=== PATIENT | female | born 1990 | race Caucasian/White ===

== ENCOUNTER 2017-12-25 11:32 | Inpatient (IN) | payer MEDICAID ==
[2017-12-25] MEDS ORDERED: Sodium Chloride 0.9% 10 ML Syringe FLUSH PRN (13:27)
[2017-12-25] MEDS ORDERED: Tranexamic Acid 1,000 MG in Sodium Chloride 0.9% 100 ML IV PRN (13:27)
[2017-12-25] MEDS ORDERED: Methylergonovine 0.2 MG/1 ML Amp IM PRN (13:27)
[2017-12-25] MEDS ORDERED: Acetaminophen 325 MG Tab PO PRN (13:27)
[2017-12-25] MEDS ORDERED: Misoprostol 400 MCG (4 X 100 MCG TAB) RECTAL PRN (13:27)
[2017-12-25] MEDS ORDERED: Lidocaine 1% 30 ML SDV INJECT PRN (13:27)
[2017-12-25] MEDS ORDERED: Carboprost Tromethamine 250 MCG/1 ML Amp IM PRN (13:27)
[2017-12-25] MEDS ORDERED: Lactated Ringers 500 ML IV ONE (13:27)
[2017-12-25] MEDS: Misoprostol 25 MCG (1/4 of 100 MCG) Tab VAG PRN ×2 (14:11→19:19)
--- NOTE | 2017-12-25 15:11 | OBOUT ---
DATE: 12/25/2017 DATE AND TIME OF NST: DATE: 12/25/2017. TIME: 1210 hours to 1230 hours. REASON FOR NST: 1. Intrauterine at 38 and 5/7 weeks confirmed with 20 and 6/7 weeks ultrasound. 2. Gestational hypertension versus preeclampsia. 3. Gestational diabetes mellitus - suspected with 1 hour GTT of 206, negative followup thereafter. 4. No labs located despite calling for records and reviewing them other than a quad screen, which appears to be within normal limits. We will do no care labs upon admission. 5. GBS negative. 6. G4, P1-0-2-1. NST INTERPRETATIONS: During this time period, heart tone baseline is approximately 150 and there are at least two 15 x 15 beat per minute accelerations, making this strip reactive. It is also noted to be reassuring. Tocometer reveals potential occasional contraction, none felt by patient. Blood pressure during this time 141/84, recheck 146/93, heart rate between 102 and 105. PLAN: The patient will be admitted. Start with no care labs as well as PIH panel and start Cytotec as her cervix is only 2 to 2.5 cm, 60% effaced, - 2 station, vertex suspected with vaginal cyst noted and relayed to nurse. I discussed the risks, benefits, alternatives, complications, use of Cytotec. Verbal consent was obtained, written consent will be obtained prior to use and we will start with Cytotec. Follow blood pressures closely as well as her labs. I did discuss with her the indication for her induction is with her increased blood pressures as well as suspected gestational diabetes mellitus, we will proceed with the above. The patient understands and agrees with the above treatment plan. [facility] /[id number]
[2017-12-25] MEDS ORDERED: Misoprostol 50 MCG (1/2 of 100 MCG) Tab VAG PRN ×2 (18:10→19:13)
[2017-12-25] MEDS: Lactated Ringers 1,000 ML IV SCH (18:15)
--- NOTE | 2017-12-25 23:59 | HP ---
HISTORY OF PRESENT ILLNESS: The patient is a 27-year-old G4, P1-0-2-1, currently at 38 and 5/7 weeks' gestation confirmed with a 20 and 6/7 weeks' ultrasound, who was seen in the clinic today with elevated blood pressures. She was subsequently sent over to the hospital for an NST and monitoring of her blood pressure and blood glucose. Her pressures were found to be consistently in the 140s to 150s over 80s to 90s. The patient was subsequently admitted for induction of labor due to gestational hypertension. The patient notes that she has had some numbness and tingling in her hands bilaterally, left more than right for the past couple of days. She also notes increased swelling in both her upper and lower extremities for the past couple of days. No other concerns per patient. REVIEW OF SYSTEMS: She denies leakage of fluid, vaginal bleeding or spotting, or contractions, and has had movement. She denies any recent headaches or blurry vision, lightheadedness or dizziness, shortness of breath or chest pain, nausea or vomiting, right upper quadrant abdominal pain, dysuria or hematuria, or erythema or tenderness in any extremity. otherwise reviewed fully and felt to be noncontributory. Records called for reviewed, summarized and supplemented by patient as below: HISTORY: 1. Normal spontaneous vaginal delivery at 42 weeks' gestation producing a female weighing 8 pounds 8 ounces, named Farzana on June 20, 2009. She denies any or complications. She does note the use of a vacuum at delivery as well as an episiotomy was performed. 2. Spontaneous September 25, 2015. 3. Spontaneous March 28, 2016. 4. Current . She was initially receiving care in [facility]. Transferred her care to [place] with Dr. Nugent and then subsequently transferred her care to Dr. Polo in [facility]. The patient did fail her 1 hour glucose tolerance test and did not follow up to perform the 3-hour glucose tolerance test for financial reasons. She denies any complications with this . PAST MEDICAL HISTORY: Recurrent UTIs. She denies any personal history of heart, lung, liver, or kidney disease. MEDICATIONS: 1. vitamins. 2. Tylenol. 3. Tums. ALLERGIES: Sulfa. PAST SURGICAL HISTORY: 1. Cholecystectomy. 2. Tonsillectomy and adenoidectomy. FAMILY HISTORY: Diabetes in maternal grandmother. Heart disease in paternal grandfather. Drug abuse in father. She denies any known family history of defects, blood clot or bleeding disorders or problems undergoing anesthesia. She denies any other heart, lung, liver, or kidney disease in her family. SOCIAL HISTORY: The patient currently lives in [place] with her significant other, Horace, father of the baby, along with his daughter. Her daughter lives with the paternal grandfather who lives next door. She works for [employer]. She denies any use of tobacco, alcohol, or any other drugs during this . PHYSICAL EXAMINATION: Vital signs: Temperature 98.6, heart rate 83, blood pressure 152/84, respiratory rate 16. General: Pleasant, resting comfortably and in no acute distress. HEENT: Atraumatic. Anicteric sclerae. Normal nasal mucosa. Oropharynx without erythema, edema, or exudate. No obvious deformities to external ears. Neck: Supple without adenopathy or thyromegaly. Heart: Regular rate and rhythm S1 and S2. Lungs: Clear to auscultation bilaterally with normal respiratory effort. Abdomen: Gravid, soft, nontender to palpation. Cervical exam: 2 to 2.5 cm dilated, 60% effaced, -2 station, vertex suspected with anterior vaginal wall cyst noted. Neurologic: No obvious neurologic deficits. Extremities: 1+ edema in the upper and lower extremities bilaterally. No erythema or tenderness. Skin: Warm, dry, and well perfused. monitoring: heart tones 150 baseline, accelerations noted with no decelerations. Category I strip. [place] shows potential occasional irregular contractions, none felt by patient. TESTING: Blood type B positive. Other testing performed in [place] and records could not be obtained, so were performed today upon admit and results are pending. LABORATORY DATA: White blood cells 8.9, hemoglobin 10.4, platelets 229. Urine, abiprqd-ql-xegbdhdfar ratio 0.11. Urine random total protein 22, urine protein 30, urine ketones 80. UDS negative. ASSESSMENT: 1. Intrauterine at 38 and 5/7 weeks' gestation confirmed with a 20 and 6/7 weeks' ultrasound. 2. Gestational hypertension. 3. Gestational diabetes suspected, 1 hour glucose tolerance test 206 with negative follow-up thereafter. Blood glucose 98 upon admit. 4. No labs located despite calling for records and reviewing them other than a quad screen (within normal limits), were done on admission with results pending. 5. Group B streptococcus negative. 6. G4, P1-0-2-1. 7. Maternal anemia, hemoglobin 10.4 on admit. PLAN: Admit the patient to Labor and Delivery floor for induction of labor due to gestational hypertension and suspected gestational diabetes with questionable control. We will start with Cytotec and serially monitor the patient, following blood pressures closely. For pain control, the patient states that she will desire an intrathecal during labor. The patient expressed understanding and is in agreement with the above plan and all of her questions have been answered. The history, physical, assessment and plan are per Dr. Polo; and this note is being scribed for Dr. Polo. seen and agreed DCW. [facility] /[id number] JAGDISH
[2017-12-26] MEDS ORDERED: Nalbuphine 20 MG/1 ML Amp IM ONE ×2 (03:50→14:15)
[2017-12-26] MEDS: Oxytocin/Normal Saline 30 UNIT/500 ML BAG IV SCH (10:46)
[2017-12-26] MEDS: Ondansetron 4 MG/2 ML SDV IV PRN ×3 (12:03→22:18)
--- NOTE | 2017-12-26 13:04 | PN ---
DATE: 12/26/2017 SUBJECTIVE: The patient is now status post Cytotec x2, overnight she did receive some Nubain because of pain. Her vaginal cyst has been bothering her. OBJECTIVE: heart tones in the 130s range, acceleration noted with vaginal exam. Tocometer, when reading contractions, reads them every 2-3 minutes, but 2 to 4 minutes apart. Vaginal exam reveals 2.5 to 3 cm cyst, anterior wall vaginal region and behind this is her cervix which was about 3 cm, 75% effaced, -1 station, vertex suspected. Artificial rupture of membranes done after discussion with the patient yielding copious amounts of clear fluid. ASSESSMENT: Intrauterine now at 38 and 6/7 weeks, confirmed with 20 and 6/7-week ultrasound with gestational hypertension with preeclampsia labs negative as well as gestational diabetes mellitus suspected with 1-hour GTT being 206 and her sugar being controlled upon admit with no labs located in her previous charting, ordered here and GBS negative G4, P1-0-2-1 with anemia with hemoglobin 10.4 upon admit and her vaginal cyst as noted above. PLAN: Artificial rupture of membranes done as above. She is now status post Cytotec x2. We will re-evaluate in a few hours, may consider Pitocin augmentation at that time. The patient understands and agrees with the above treatment and plan. [facility] /[id number]
[2017-12-26] MEDS: Lactated Ringers 1,000 ML IV SCH ×3 (16:45→22:01)
[2017-12-26] MEDS ORDERED: EPINEPHrine 1 MG/ML SDV ONE ×3 (17:23→21:20)
[2017-12-26] MEDS ORDERED: fentaNYL 100 MCG/2 ML SDV ONE ×2 (17:23→21:20)
[2017-12-26] MEDS ORDERED: Bupivacaine 0.75%/D5W 2 ML Amp ONE ×2 (17:23→21:20)
[2017-12-26] MEDS ORDERED: ePHEDrine 50 MG/ML SDV ONE (17:47)
[2017-12-26] MEDS ORDERED: ePHEDrine 50 MG/ML SDV IVPUSH ONE ×2 (17:48→18:00)
--- NOTE | 2017-12-26 17:49 | PCM.SN ---
- Free Text/Narrative Note: Intrathecal. Sitting position, sterile prep and drape. 1 % lidocaine w bicarb for skinwheal to L3 L4 interspace. Introducer, 24 ga pencan x 3. Pos CSF, neg heme, neg parasthesia. 0.1 ml 1:1000 pf epi, 20 mcg pf sufenta, 30 mcg pf fentanyl, 0.4 ml pf ns and 6 mg of 0.75 % bupivacaine injected after CSF aspiration. Pt to L lateral side. Procedure time 1725 to 1755
--- NOTE | 2017-12-26 21:55 | PCM.SN ---
- Free Text/Narrative Note: Intrathecal. Sitting position, sterile prep and drape. 1 % lidocaine w bicarb for skinwheal to L3 L4 and L2 L3 interspace. Introducer, 24 ga pencan x 3 at L3 L4 and 3 x at L2 L3. Pos CSF at L2 L3, neg heme, parasthesia w needle insertion but resolved. 0.1 ml 1:1000 pf epi, 20 mcg pf sufenta, 30 mcg pf fentanyl, 0.4 ml pf ns and 6 mg of 0.75 % bupivacaine injected after CSF aspiration. Pt to L lateral side. Procedure time 1924 to 2009
[2017-12-27] MEDS: Oxytocin/Normal Saline 30 UNIT/500 ML BAG IV SCH (01:56)
[2017-12-27] MEDS: Acetaminophen 325 MG Tab PO PRN ×3 (02:06→18:34)
[2017-12-27] MEDS ORDERED: Acetaminophen/oxyCODONE 325-5 MG Tab PO ONE (03:53)
--- NOTE | 2017-12-27 10:15 | PN ---
DATE: 12/26/2017 SUBJECTIVE: The patient is uncomfortable, status post now NST, Cytotec x2, and artificial rupture of membranes. She is requesting something for pain. OBJECTIVE: Vital Signs: Blood pressure 135/84. heart tones in the 140s and felt to be reactive and reassuring. Tocometer reveals contractions every 1.5 to 3 minutes apart. Vaginal exam reveals her to be 4 cm, 85% effaced, -2 station, vertex suspected and IUPC placed after discussion with the patient with continued copious amounts of clear fluid leaking. Anterior vaginal wall cyst is smaller at approximately 2 cm. ASSESSMENT AND PLAN: Intrauterine now at 38 and 6/7 weeks with gestational hypertension, gestational diabetes mellitus, suspected with 1 hour GTT being 206. Blood sugar being 98 and under control upon admission with no care labs, which have been done, and GBS negative, G4, P1-0-2-1 with anemia with hemoglobin 10.4, and history of vaginal cyst anterior wall at 2.5 cm upon admission. [facility] /[id number]
[2017-12-27] MEDS: Docusate Sodium 100 MG Cap PO PRN ×2 (10:25→22:31)
--- NOTE | 2017-12-27 12:36 | PN ---
DATE: 12/27/2017 day #0, status post spontaneous vaginal delivery, complicated by shoulder dystocia and hemorrhage with an estimated blood loss of 1000 mL, complicated by uterine atony and retained placental fragments requiring bimanual uterine curettage of lower uterine segment with anemia of . Hemoglobin 10.4 upon admission. SUBJECTIVE: The patient states she is minimally sore. Pain is under control. She has been tolerating p.o. She has ambulated and urinated without difficulty. She is passing flatus. OBJECTIVE: Vital Signs: Last blood pressure 134/74 and heart rate 90. Appearance: In no obvious distress. LABORATORY DATA: Labs reveal a white cell count of 16.8, hemoglobin 9.4, and platelets 215. ASSESSMENT: 1. day #0, status post spontaneous vaginal delivery, complicated by the above as well as noting to have an anterior vaginal cyst that she was able to deliver around without any difficulty. 2. Anemia of acute blood loss. Hemoglobin dropping down to 9.4. We will check a CBC tomorrow. Follow up symptoms. Vital signs are stable currently. PLAN: I did discuss with the patient findings on her baby's exam today in regard to limited motion of the left shoulder. X-rays are pending. Also, did discuss with her the new-onset murmur which is suspected to be peripheral pulmonary stenosis, and we will follow clinically and closely in regard to this as well. Physical Therapy will be consulted for her baby. I did discuss with her over approximately 90% of these limited motion issues and concerns with extremities and the upper extremities after shoulder dystocia resolved over time, but we will continue to follow clinically and closely at this point in time due to the above interventions. The patient understands and agrees with the above treatment plan. [facility] /[id number]
[2017-12-27] MEDS: Ferrous Sulfate 325 MG Tab PO SCH (18:30)
[2017-12-28] MEDS: Acetaminophen 325 MG Tab PO PRN ×5 (03:42→22:59)
[2017-12-28] MEDS: Ferrous Sulfate 325 MG Tab PO SCH ×2 (08:32→18:33)
[2017-12-28] MEDS: Docusate Sodium 100 MG Cap PO PRN ×2 (08:33→22:59)
[2017-12-28] MEDS: Prenatal Multivitamin with Calcium/Folic Acid/Iron Tab PO SCH (08:33)
--- NOTE | 2017-12-28 09:14 | DEL ---
DATE: 12/27/2017 PREOPERATIVE DIAGNOSES: 1. Intrauterine at 39 weeks, confirmed with 20 and 6/7 week ultrasound. 2. Gestational hypertension. 3. Gestational diabetes mellitus, suspected with 1 hour GTT being 206, and glucose being controlled upon admit at 98. 4. No labs upon admission with records called for and drawn upon admission. 5. Group B Streptococcus negative. 6. Anemia of with a hemoglobin of 10.4 upon admission. 7. G4, P1-0-2-1. 8. Vaginal cyst anteriorly, approximately 2-1/2 cm. POSTOPERATIVE DIAGNOSES: 1. Intrauterine at 39 weeks, confirmed with 20 and 6/7 week ultrasound, delivered. 2. Gestational hypertension. 3. Gestational diabetes mellitus, suspected with 1 hour GTT being 206, and glucose being controlled upon admit at 98. 4. No labs upon admission with records called for and drawn upon admission. 5. Group B Streptococcus negative. 6. Anemia of with a hemoglobin of 10.4 upon admission. 7. G4, P1-0-2-1. 8. Vaginal cyst anteriorly, approximately 2-1/2 cm. 9. Thirty seconds shoulder dystocia requiring Gabi maneuver, suprapubic pressure, and entery maneuvers with baby in a LAKISHA presentation. 10.True umbilical cord knot. 11. hemorrhage with an EBL of a 1000 mL. 12.Uterine atony requiring Methergine, Hemabate, Cytotec, tranexamic acid, and bimanual finger uterine curettage of lower uterine segment to remove placental fragments. 13.Retained placental fragments requiring finger uterine curettage of lower uterine segment. 14.Macrosomia with weight of 10 pounds 3 ounces. PROCEDURE PERFORMED: NST and Cytotec x2 on 12/25/2017, followed by artificial rupture membranes on 12/26/2017 with IUPC and Pitocin augmentation, spontaneous vaginal delivery on 12/27/2017 with bimanual and finger uterine curretage of lower uterine segment. SURGEON: Andrzej Polo MD. [employer] HAND ENGRAVER: Imani Miranda MS-III. ANESTHESIA/ANALGESIA: The patient did receive Nubain during the first stage of labor as well as 2 intrathecals. ESTIMATED BLOOD LOSS: 1000 mL. FINDINGS: 1. Female, scores 2 and 9, weight 10 pounds 3 ounces. 2. Lower uterine segment with placental fragments requiring bimanual finger uterine curettage of lower uterine segment with removal of placental fragments. 3. Uterine atony, requiring multiple medications as above and below with an EBL of a 1000 mL. 4. anterior vaginal cyst 2.5 cm SUMMARY OF EVENTS: The patient is 27-year-old, G4, P1-0-2-1, admitted on 12/25/2017, at 38 and 5/7 weeks, confirmed 20 and 6/7 week ultrasound with gestational hypertension with preeclampsia labs essentially negative for preeclampsia with gestational diabetes mellitus suspected with 1 hour GTT being 206 and failure to do her 3 hour GTT with limited care with glucose 98 upon admission. She had no labs done. Underwent NST followed by Cytotec x2 and then on the morning of 12/26/2017, had artificial rupture of membranes. She was followed closely thereafter. continued to have slowed dilation. IUPC was placed, followed by Pitocin augmentation, and she did receive 2 intrathecals in the first stage of labor. She was found to be complete and I was called to the OB floor. She started pushing with contractions. I was subsequently called to the room, donned sterile gown and gloves as well as did Imani Miranda. Then, after patient pushing with contractions, vertex was delivered in LAKISHA presentation. Thereafter, there was difficulty delivering the anterior shoulder with patient refusing to push at times. Subsequently, Gabi maneuver ensued followed by suprapubic pressure as anterior shoulder was still unable to be delivered with patient pushing at that time. Despite this, anterior shoulder was still unable to be delivered and entry maneuvers were done and left shoulder was pushed towards anterior/maternal left and anterior shoulder was then subsequently delivered followed by posterior shoulder as well as the rest of the infant with minimal difficulty thereafter. Vaginal cyst anteriorly moved out of the way on its own and didn't interfere with delivery of child or shoulder. Cord was doubly clamped and cut. Mouth and nares suctioned. Patient brought over to warmer for resuscitation. Then, approximately 10 mL of cord blood was obtained for labs. Placenta then delivered with gentle cord traction and fundal massage within 15 minutes. After delivery of the placenta, there was noted to be a hemorrhage with uterine atony, Methergine, Hemabate, and Cytotec were called for and given as well as fundal massage ensued. Despite this, there was continued bleeding. A elma bimanual exam was done and placental fragments were felt in the lower uterine segment and finger uterine curettage was done of this area removing approximately 2 to 3 small placental membranes/placental fragments. Tranexamic acid was called for and given and bleeding slowed thereafter with fundal massage and after the finger uterine curettage. Perineum, vagina, and perirectal areas were then examined with a small first-degree perineal abrasion, nonbleeding, non-repaired after discussion with the patient. Mother and are currently stable time of dictation. We will do a CBC approximately 6 hours after delivery for evaluation of her blood loss. Follow vital signs closely, tranexamic acid has as been started and may need to be repeated as well, and findings were discussed with the patient. I did also discuss with the shoulder dystocia with her infant as well as following her infant closely for any concerns. The patient understands and agrees with the above treatment plan. [facility] /[id number] MTDLynne
--- NOTE | 2017-12-28 12:44 | PN ---
DATE: 12/28/2017 day #1, status post spontaneous vaginal delivery, complicated by anemia of acute blood loss with shoulder dystocia and hemorrhage with an estimated blood loss of 1000 mL and uterine atony, requiring Methergine, Hemabate, Cytotec, and tranexamic acid. SUBJECTIVE: The patient is tolerating p.o.'s, ambulating, urinating, passing flatus. She denies any chest pain, shortness of breath, or lightheadedness. She is somewhat tearful as her baby was transferred to the NICU last night/early this morning. OBJECTIVE: Vital Signs: Last set of vitals updated and listed in the chart reveals temperature 97, heart rate 99, blood pressure 115/65, and respiratory rate 18. Lungs: Clear to auscultation bilaterally. Heart: S1 and S2. Regular rate and rhythm. Abdomen: Firm uterus at +1 above the umbilicus. Extremities: Pitting edema of 1 to 2+ to the proximal tibia. LABORATORY DATA: White cell count 12.1, hemoglobin 7.3, and platelets 223. ASSESSMENT AND PLAN: 1. day #1, status post spontaneous vaginal delivery with complications noted as above. 2. Anemia of acute blood loss. Hemoglobin dropping down to 7.3 from 10.4. The patient is currently asymptomatic. We did discuss with her if she has any symptoms today including, but not limited to, chest pain, shortness of breath, lightheadedness, or fatigue, I would consider blood transfusion. DISPOSITION: The patient states that her baby is in the NICU in [place]. They are not doing much for workup at this point in time, will be know more tomorrow, and states she is okay staying through tonight to follow closely. However, if something happens where she needs to get to [place] sooner than later, did discuss potential for discharge. The patient understands and agrees with the above treatment and plan. [facility] /[id number]
[2017-12-29] MEDS: Acetaminophen 325 MG Tab PO PRN ×2 (05:08→09:29)
[2017-12-29] MEDS: Prenatal Multivitamin with Calcium/Folic Acid/Iron Tab PO SCH (09:31)
[2017-12-29] MEDS: Ferrous Sulfate 325 MG Tab PO SCH (09:31)
--- NOTE | 2017-12-29 10:06 | DISCH ---
ADMIT DIAGNOSES: 1. Intrauterine at 38 and 5/7 weeks, confirmed with 20 and 6/7 week ultrasound. 2. Gestational hypertension. 3. Gestational diabetes mellitus-suspected with 1-hour GTT being 206 with glucose of 96 upon admit. 4. No labs located and done upon admission. 5. Group B Streptococcus negative. 6. Anemia of with hemoglobin of 10.4 upon admission. 7. Vaginal cyst approximately 2.5 cm anterior wall. 8. 4, P1-0-2-1. DISCHARGE DIAGNOSES: 1. Intrauterine at 39 weeks, confirmed with 20 and 6/7 week ultrasound-delivered. 2. Gestational hypertension. 3. Gestational diabetes mellitus-suspected with 1-hour GTT being 206 with glucose of 96 upon admit. 4. No labs located and done upon admission. 5. Group B Streptococcus negative. 6. Anemia of with hemoglobin of 10.4 upon admission. 7. Vaginal cyst approximately 2.5 cm anterior wall. 8. 4, P1-0-2-1. 9. True umbilical cord knot. 10.Thirty second shoulder dystocia requiring Gabi maneuver, suprapubic pressure, and entry maneuvers. 11. hemorrhage with an EBL of 1000 mL with uterine atony, requiring Methergine, Hemabate, Cytotec, tranexamic acid, and bimanual finger uterine curettage of lower uterine segment to remove retained placental fragments. 12.Anemia of acute blood loss, hemoglobin dropping down to 7.3 on 12/28/2017- currently asymptomatic. 13.Macrosomia with weight of 10 pounds 3 ounces (4625 g). PROCEDURE PERFORMED: NST on 12/25/2017, followed by Cytotec x2, artificial rupture of membranes on 12/26/2017 with IUPC and Pitocin augmentation with delivery on 12/27/[address] Polo. HISTORY OF PRESENT ILLNESS: Please see H and P. SUMMARY OF HOSPITAL COURSE: The patient was admitted on the above date with the above diagnoses, underwent induction with Cytotec x2 followed by artificial rupture of membranes, Pitocin, and IUPC augmentation. She went on to have a spontaneous vaginal delivery on 12/27/2017 yielding female score 2 and 9, weighing 10 pounds 3 ounces with complications noted as above. Please see delivery note for further details. day #1, please see progress note. day #2, date of discharge, the patient was tolerating p.o., ambulating, urinating, passing flatus, and requesting discharge. Denies any chest pain, lightheadedness, shortness of breath, fatigue or any symptoms of anemia. PHYSICAL EXAMINATION: Vital Signs: Temperature 98.6, blood pressure 106/64, heart rate 82. APPEARANCE: No apparent distress. Lungs: Clear to auscultation bilaterally. Heart: S1, S2. Regular rate and rhythm. Abdomen: Firm uterus +1 below the umbilicus. Extremities: 1+ pitting edema to proximal tibia. No calf pain. CONDITION ON DISCHARGE COMPARED TO CONDITION ON ADMISSION: Improved. DISCHARGE INSTRUCTIONS: 1. Diet as tolerated. 2. Activity: No lifting more than 20 pounds. No sit-ups or straining and pelvic rest for the next 6 weeks with immediate return to fertility discussed with the patient in detail. 3. Reasons to return or go to the emergency room were discussed with the patient in detail including, but not limited to, temperature greater than 100.4, foul-smelling discharge, red hot tender breasts, or increased vaginal bleeding. DISCHARGE MEDICATIONS: 1. [id number] Tylenol or ibuprofen for pain. 2. Iron sulfate 325 b.i.d. x6 weeks. FOLLOWUP: Follow up in 6 weeks for visit. PLAN: The patient's infant was sent to the NICU during this hospital stay in [place]. I did discuss with her, following her infant closely, and will be able to follow up in the clinic after discharge from NICU as well. The patient understands and agrees with the above treatment plan. [facility] /[id number]
[2017-12-29] MEDS ORDERED: EPINEPHrine 1 MG/ML SDV ONE ×2 (14:20→14:22)
[2017-12-29] MEDS ORDERED: Bupivacaine 0.75%/D5W 2 ML Amp ONE ×2 (14:20→14:22)
[2017-12-29] MEDS ORDERED: fentaNYL 100 MCG/2 ML SDV ITHECAL ONE ×2 (14:20→14:22)
== END 2017-12-29 16:45 | disposition home or self-care (01) | DRG 767 ==
LOC: DL.OBCHECK 11:32 → DL.OB 14:00 → OBSVTOIN 12-27 00:23
PROVIDERS: ADMIT Family Medicine; ATTEND Family Medicine
PROC: 3E0R3BZ Introduction of Anesthetic Agent into Spinal Canal, Percutaneous Approach (ICD-10-PCS; 2017-12-26)
PROC: 00HU33Z Insertion of Infusion Device into Spinal Canal, Percutaneous Approach (ICD-10-PCS; 2017-12-26)
PROC: 00HU33Z Insertion of Infusion Device into Spinal Canal, Percutaneous Approach (ICD-10-PCS; 2017-12-26)
PROC: 10H07YZ Insertion of Other Device into Products of Conception, Via Natural or Artificial Opening (ICD-10-PCS; principal; 2017-12-27)
PROC: 3E0P7VZ Introduction of Hormone into Female Reproductive, Via Natural or Artificial Opening (ICD-10-PCS; principal; 2017-12-27)
PROC: 10D17Z9 Manual Extraction of Products of Conception, Retained, Via Natural or Artificial Opening (ICD-10-PCS; principal; 2017-12-27)
PROC: 10907ZC Drainage of Amniotic Fluid, Therapeutic from Products of Conception, Via Natural or Artificial Opening (ICD-10-PCS; principal; 2017-12-27)
PROC: 6A550ZT Pheresis of Cord Blood Stem Cells, Single (ICD-10-PCS; principal; 2017-12-27)
PROC: 10E0XZZ Delivery of Products of Conception, External Approach (ICD-10-PCS; principal; 2017-12-27)
DX: O13.4 Gestational [pregnancy-induced] hypertension without significant proteinuria, complicating childbirth (principal); D62 Acute posthemorrhagic anemia; Z37.0 Single live birth; O72.1 Other immediate postpartum hemorrhage; O24.429 Gestational diabetes mellitus in childbirth, unspecified control; D64.89 Other specified anemias; O69.2XX0 Labor and delivery complicated by other cord entanglement, with compression, not applicable or unspecified; O66.0 Obstructed labor due to shoulder dystocia; O36.63X0 Maternal care for excessive fetal growth, third trimester, not applicable or unspecified; Z3A.38 38 weeks gestation of pregnancy; O90.81 Anemia of the puerperium; O72.2 Delayed and secondary postpartum hemorrhage; O75.89 Other specified complications of labor and delivery; N89.8 Other specified noninflammatory disorders of vagina; Z88.2 Allergy status to sulfonamides; Z87.440 Personal history of urinary (tract) infections; Z90.49 Acquired absence of other specified parts of digestive tract
CPT/HCPCS: 01967; 36415; 51701; 59025; 59409; 80305; 80307; 81001; 82565; 82570; 82962; 83615; 84156; 84450; 84460; 84520; 84550; 85025; 85027; 86592; 86703; 86762; 86803; 86850; 86900; 86901; 87340; A9270-GY; J0171; J0696; J2210; J2300; J2405; J2590; J3010; J7050; J7120

== ENCOUNTER 2019-07-31 07:52 | Emergency (ER) | payer MEDICAID ==
--- NOTE | 2019-07-31 08:10 | EDM.PDOC ---
ED HPI GENERAL MEDICAL PROBLEM - General Chief Complaint: Lower Extremity Injury/Pain Stated Complaint: FELL HURT LEFT ANKLE Time Seen by Provider: 07/31/19 08:10 Source of Information: Reports: Patient History Limitations: Reports: No Limitations - History of Present Illness INITIAL COMMENTS - FREE TEXT/NARRATIVE: This 28 yo female patient reports to the ED due to pain in her left foot and ankle. The patient reports she slipped on the ice this morning and injured her left lower extremity. The patient reports she is currently 31 weeks . The patient reports her pain is a 5/10 at rest, but 8/10 with movement or weight bearing. The patient reports she did not hit her head and had no loss of consciousness before, during or after the fall. Onset: Today Duration: Minutes:, Constant Location: Reports: Lower Extremity, Left Quality: Reports: Dull, Stabbing Severity: Moderate Improves with: Reports: Rest Worsens with: Reports: Movement Context: Reports: Trauma (ground level fall) Associated Symptoms: Reports: No Other Symptoms Left Ankle Pain Score (Numeric/FACES): 5 - Related Data Allergies Allergy/AdvReac Type Severity Reaction Status Date / Time Sulfa (Sulfonamide Allergy Anaphylactic Verified 07/31/19 08:04 Antibiotics) Shock Home Meds: Home Meds Vit No.129/Iron/FA [ One Daily Tablet] 1 tab PO DAILY 12/25/17 [History] Insulin Aspart [NovoLOG] 10 units SQ ASDIRECTED 07/31/19 [History] Insulin Glarg,Human.Rec.Analog [Lantus Solostar] 30 units SQ BEDTIME 07/31/19 [ History] Past Medical History HEENT History: Reports: None Cardiovascular History: Reports: None Respiratory History: Reports: None Gastrointestinal History: Reports: None Genitourinary History: Reports: None [employer]IST History: Reports: Musculoskeletal History: Reports: None Neurological History: Reports: Migraines Psychiatric History: Reports: None Endocrine/Metabolic History: Reports: None Hematologic History: Reports: None Immunologic History: Reports: None Oncologic (Cancer) History: Reports: None Dermatologic History: Reports: None - Infectious Disease History Infectious Disease History: Reports: None - Past Surgical History Head Surgeries/Procedures: Reports: None HEENT Surgical History: Reports: Tonsillectomy GI Surgical History: Reports: Cholecystectomy Social & Family History - Family History Family Medical History: Noncontributory - Caffeine Use Caffeine Use: Reports: Soda Review of Systems - Review of Systems Review Of Systems: Comprehensive ROS is negative, except as noted in HPI. ED EXAM, GENERAL - Physical Exam Exam: See Below Exam Limited By: No Limitations General Appearance: Alert, WD/WN, Moderate Distress, Obese Eye Exam: Bilateral Eye: EOMI, Normal Inspection, PERRL Ears: Normal External Exam, Normal Canal, Hearing Grossly Normal, Normal TMs Nose: Normal Inspection, Normal Mucosa, No Blood Throat/Mouth: Normal Inspection, Normal Lips, Normal Teeth, Normal Gums, Normal Oropharynx, Normal Voice, No Airway Compromise Head: Atraumatic, Normocephalic Neck: Normal Inspection, Supple, Non-Tender, Full Range of Motion Respiratory/Chest: No Respiratory Distress, Lungs Clear, Normal Breath Sounds, No Accessory Muscle Use, Chest Non-Tender Cardiovascular: Normal Peripheral Pulses, Regular Rate, Rhythm, No Edema, No Gallop, No JVD, No Murmur, No Rub GI/Abdominal: Normal Bowel Sounds, Soft, Non-Tender, No Organomegaly, No Distention, No Abnormal Bruit, No Mass (Female) Exam: Deferred Rectal (Female) Exam: Deferred Back Exam: Normal Inspection, Full Range of Motion, NT Extremities: Leg Pain (left ankle (medial and lateral tenderness with palpation) , left foot (tenderness to flexor surface with palpation more to the medial aspect)) Neurological: Alert, Oriented, CN II-XII Intact, Normal Cognition Psychiatric: Normal Affect Skin Exam: Warm, Dry, Intact, Normal Color, No Rash Lymphatic: No Adenopathy Course - Vital Signs Last Recorded V/S: Last Vital Signs Temp 36.3 C 07/31/19 07:59 Pulse 113 H 07/31/19 07:59 Resp 16 07/31/19 07:59 BP 131/78 07/31/19 07:59 Pulse Ox 98 07/31/19 07:59 - Orders/Labs/Meds Orders: Active Orders 24 hr Category Date Time Status Ankle Min 3V Lt [CR] Urgent Exams 07/31/19 08:06 Ordered Foot Comp Min 3V Lt [CR] Urgent Exams 07/31/19 08:06 Ordered DME for Discharge [COMM] Urgent Oth 07/31/19 09:21 Ordered Departure - Departure Time of Disposition: 09:22 Disposition: Home, Self-Care 01 Condition: Fair Clinical Impression: Left ankle sprain Qualifiers: Encounter type: initial encounter Involved ligament of ankle: unspecified ligament Qualified Code(s): S93.402A - Sprain of unspecified ligament of left ankle, initial encounter - Discharge Information *PRESCRIPTION DRUG MONITORING PROGRAM REVIEWED*: Not Applicable *COPY OF PRESCRIPTION DRUG MONITORING REPORT IN PATIENT OMARI: Not Applicable Instructions: Ankle Sprain, [id number] Forms: ED Department Discharge Care Plan Goals: The patient was advised of the examination and x-ray results during the visit. The patient was discharged in a sugar tong splint and given a set of crutches. The patient was advised to rest, ice and elevate her left lower extremity throughout today. The patient may take Tylenol as directed for temporary symptom relief. If the patient has any additional symptoms or concerns, the patient should either return to the emergency department or visit her primary care facility. - My Orders Last 24 Hours: My Active Orders 07/31/19 08:06 Ankle Min 3V Lt [CR] Urgent Foot Comp Min 3V Lt [CR] Urgent 07/31/19 09:21 DME for Discharge [COMM] Urgent - Assessment/Plan Last 24 Hours: My Active Orders 07/31/19 08:06 Ankle Min 3V Lt [CR] Urgent Foot Comp Min 3V Lt [CR] Urgent 07/31/19 09:21 DME for Discharge [COMM] Urgent
--- NOTE | 2019-07-31 10:25 | CR ---
EXAMINATION: Foot Comp Min 3V Lt SEX: Female AGE: 28 years CLINICAL HISTORY: 28-year-old female fell, hurt left foot and ankle. Ankle "sprain". INTERPRETATION: 1. Homogeneous normal bone mineral density for age and gender. Reactive sclerosis first metatarsophalangeal joint. 2. No sign of left foot fracture or dislocation. 3. Mild pes cavus. No heel spurs. 4. No foreign bodies. CONCLUSION: No left foot fracture or dislocation.
--- NOTE | 2019-07-31 10:25 | CR ---
EXAMINATION: Ankle Min 3V Lt SEX: Female AGE: 28 years CLINICAL HISTORY: 28-year-old female injured in a fall. INTERPRETATION: Three views left ankle confirm some bimalleolar soft tissue swelling. Homogeneous normal bone mineral density. No underlying fracture or disruption of the tibiotalar mortise joint symmetry, i.e., no dislocation. Pes cavus. No heel spurs. No fracture base of the fifth metatarsal. No foreign bodies or inflammatory periostitis. CONCLUSION: Left ankle sprain. No fractures.
== END 2019-07-31 09:37 | disposition home or self-care (01) ==
LOC: DL.ED 07:52
DX: O9A.213 Injury, poisoning and certain other consequences of external causes complicating pregnancy, third trimester (principal); S93.402A Sprain of unspecified ligament of left ankle, initial encounter; Z88.2 Allergy status to sulfonamides; W00.0XXA Fall on same level due to ice and snow, initial encounter; Z3A.31 31 weeks gestation of pregnancy
CPT/HCPCS: 29515; 73610-LT; 73630-LT; 99283-25

== ENCOUNTER 2023-08-22 03:18 | Emergency (ER) | payer BC, MEDICAID ==
[2023-08-22] MEDS ORDERED: Doxycycline Monohydrate 100 MG Cap PO ONE (03:37)
== END 2023-08-22 04:08 | disposition home or self-care (01) ==
LOC: DL.ED 03:18
DX: L03.111 Cellulitis of right axilla (principal); L03.112 Cellulitis of left axilla; Z90.49 Acquired absence of other specified parts of digestive tract; Z88.2 Allergy status to sulfonamides; Z79.4 Long term (current) use of insulin
CPT/HCPCS: 87070; 87077; 87186; 99283; A9270-GY